=== PATIENT | female | born 1995 | race Caucasian/White ===

== ENCOUNTER 2019-07-03 05:20 | Emergency (ER) | payer BC, OTHER ==
[~2019-07-03] VITALS: Ht 157.5 cm; Wt 55.5 kg
[2019-07-03] MEDS ORDERED: ALBUTEROL/IPRATROPIUM 2.5MG/0.5MG, 3 ML ONE (05:58)
[2019-07-03] MEDS ORDERED: ALBUTEROL/IPRATROPIUM 2.5MG/0.5MG, 3 ML NPPB ONE (06:00)
[2019-07-03 06:12] VITALS: BP 133/85
--- NOTE | 2019-07-03 06:20 | NUR ---
Note lakisha in EDM - 07/03/19 at 0625 by [email or web address] Patient presents to ER c/o SOB with chest heaviness. Patient has a hx asthma. PT STATED SHE AWOKE WITH CP AND SOB AT 0400. PT HAS A HX ASTHMA AND IS OUT OF HER PUFFER RX.
--- NOTE | 2019-07-03 06:25 | NUR ---
Patient presents to ER c/o SOB with chest heaviness since 399. Patient has a hx asthma. Patient is in NAD. Respirations even and unlabored. No wheezes noted.
--- NOTE | 2019-07-03 06:35 | NUR ---
Patient states breathing tx helped her SOB.
== END 2019-07-03 07:28 | disposition home or self-care (01) ==
LOC: ED 06:35
DX: J45.41 Moderate persistent asthma with (acute) exacerbation (principal); R06.00 Dyspnea, unspecified; R94.31 Abnormal electrocardiogram [ECG] [EKG]
CPT/HCPCS: 71045; 93005; 94640; 99283; J7512